=== PATIENT | male | born 1980 | race Caucasian/White ===

== ENCOUNTER 2025-04-28 08:28 | Outpatient (REF) | payer BC, SELFPAY ==
--- NOTE | 2025-04-28 08:34 | ECG_ITS ---
Test Reason : r/o qtc prolongation Blood Pressure : */* mmHG Vent. Rate : 73 BPM Atrial Rate : 73 BPM P-R Int : 154 ms QRS Dur : 88 ms QT Int : 388 ms P-R-T Axes : 37 62 30 degrees QTcB Int : 427 ms Normal sinus rhythm Normal ECG No previous ECGs available Referred By: Angelina Johnson Electronically Signed By: JOVANNY ORTEGA MD
[2025-04-28 08:57] LABS: MANUAL DIFF FLAG NO
--- OUTSIDE RECORDS SUMMARY | 2025-04-28 09:31 | XMS_ITS ---
Author Name [facility] Organization Unknown Results Test Name/Text Value Interpretation Date Range Source eGFRcr SerPlBld CKD-EPI 2020 95.0 mL/min/1.73m2 Normal 10/24/2024 - [facility] Prot SerPl-mCnc 7.2 g/dL Normal 10/24/2024 6.4 - 8.5 [facility] Creat SerPl-mCnc 0.99 mg/dL Normal 10/24/2024 0.7 - 1.3 C [facility] AST SerPl-cCnc 22.0 unit/L Normal 10/24/2024 5 - 40 [facility] ALT SerPl-cCnc 25.0 unit/L Normal 10/24/2024 7 - 52 CT [facility] Bilirub SerPl-mCnc 0.6 mg/dL Normal 10/24/2024 0.3 - 1 [facility] Potassium SerPl-sCnc 4.7 mmol/L Normal 10/24/2024 3.5 - 5.1 [facility] Glucose SerPl-mCnc 96.0 mg/dL Normal 10/24/2024 70 - 199 [facility] BUN/Creat SerPl 13.1 Normal 10/24/2024 12 - 20 [facility] CO2 SerPl-sCnc 31.0 mmol/L Normal 10/24/2024 24 - 32 CT [facility] Albumin SerPl-mCnc 4.5 g/dL Normal 10/24/2024 3.5 - 5 [facility] Chloride SerPl-sCnc 104.0 mmol/L Normal 10/24/2024 98 - 1 07 [facility] ALP SerPl-cCnc 50.0 unit/L Normal 10/24/2024 34 - 104 [facility] BUN SerPl-mCnc 13.0 mg/dL Normal 10/24/2024 9 - 20 [facility] Sodium SerPl-sCnc 139.0 mmol/L Normal 10/24/2024 135 - 14 5 [facility] Anion Gap SerPl-sCnc 4.0 Below low normal 10/24/2024 5 - 14 [facility] Calcium SerPl-mCnc 9.6 mg/dL Normal 10/24/2024 8.4 - 10.2 [facility] Monocytes # Bld Auto 0.53 K/mcL Normal 10/24/2024 0 - 0.8 [facility] Lymphocytes # Bld Auto 1.23 K/mcL Normal 10/24/2024 1 - 3.2 [facility] PMV Bld Auto 8.7 FL Normal 10/24/2024 7.4 - 11.4 [facility] Neutrophils # Bld Auto 5.67 K/mcL Normal 10/24/2024 1.8 - 7.8 [facility] Platelet # Bld Auto 292.0 K/mcL Normal 10/24/2024 150 - 4 50 [facility] Eosinophil/leuk NFr Bld Auto 1.6 % Normal 10/24/2024 0 - 6 [facility] MCV RBC Auto 88.4 FL Normal 10/24/2024 78 - 100 [facility] Monocytes/leuk NFr Bld Auto 7.0 % Normal 10/24/2024 2 - 12 [facility] Hgb Bld-mCnc 14.7 g/dL Normal 10/24/2024 13.5 - 18 [facility] MH Basophils # Bld Auto 0.04 K/mcL Normal 10/24/2024 0 - 0.2 [facility] Lymphocytes/leuk NFr Bld Auto 16.1 % Below low normal 10/24/2024 20 - 48 [facility] MCH RBC Qn Auto 29.9 pcg Normal 10/24/2024 25 - 33 [facility] Eosinophil # Bld Auto 0.12 K/mcL Normal 10/24/2024 0 - 0.5 [facility] Hct VFr Bld Auto 43.5 % Normal 10/24/2024 40 - 54 CT [facility] WBC # Bld Auto 7.6 K/mcL Normal 10/24/2024 4 - 10.5 [facility] MCHC RBC Auto-mCnc 33.8 g/dL Normal 10/24/2024 32 - 36 [facility] Basophils/leuk NFr Bld Auto 0.5 % Normal 10/24/2024 0 - 2 [facility] Neutrophils/leuk NFr Bld Auto 74.4 % Above high normal 10/24/2024 44 - 74 [facility] RDW RBC Auto-Rto 13.0 % Normal 10/24/2024 12.1 - 17.7 [facility] RBC # Bld Auto 4.92 M/mcL Normal 10/24/2024 4.7 - 6 CT_ [facility] Albumin SerPl-mCnc 4.7 g/dL Normal 10/20/2024 3.5 - 5 [facility] BUN SerPl-mCnc 16.0 mg/dL Normal 10/20/2024 9 - 20 [facility]_ [facility] eGFRcr SerPlBld CKD-EPI 2020 90.0 mL/min/1.73m2 Normal 10/20/2024 - [facility] Chloride SerPl-sCnc 101.0 mmol/L Normal 10/20/2024 98 - 1 07 [facility] Glucose SerPl-mCnc 101.0 mg/dL Normal 10/20/2024 70 - 199 [facility] BUN/Creat SerPl 15.4 Normal 10/20/2024 12 - 20 [facility]_ [facility] Sodium SerPl-sCnc 139.0 mmol/L Normal 10/20/2024 135 - 14 5 [facility] Prot SerPl-mCnc 7.5 g/dL Normal 10/20/2024 6.4 - 8.5 [facility] Creat SerPl-mCnc 1.04 mg/dL Normal 10/20/2024 0.7 - 1.3 C [facility] Calcium SerPl-mCnc 9.7 mg/dL Normal 10/20/2024 8.4 - 10.2 [facility] Anion Gap SerPl-sCnc 9.0 Normal 10/20/2024 5 - 14 [facility] ALT SerPl-cCnc 25.0 unit/L Normal 10/20/2024 7 - 52 [facility] ALP SerPl-cCnc 65.0 unit/L Normal 10/20/2024 34 - 104 [facility] AST SerPl-cCnc 21.0 unit/L Normal 10/20/2024 5 - 40 [facility] Bilirub SerPl-mCnc 0.5 mg/dL Normal 10/20/2024 0.3 - 1 [facility] Potassium SerPl-sCnc 4.1 mmol/L Normal 10/20/2024 3.5 - 5.1 [facility] CO2 SerPl-sCnc 29.0 mmol/L Normal 10/20/2024 24 - 32 [facility] Eosinophil # Bld Auto 0.11 K/mcL Normal 10/20/2024 0 - 0.5 [facility] Lymphocytes # Bld Auto 1.04 K/mcL Normal 10/20/2024 1 - 3.2 [facility] MCV RBC Auto 89.3 FL Normal 10/20/2024 78 - 100 [facility] Eosinophil/leuk NFr Bld Auto 1.6 % Normal 10/20/2024 0 - 6 [facility] MCH RBC Qn Auto 30.7 pcg Normal 10/20/2024 25 - 33 [facility] Neutrophils/leuk NFr Bld Auto 76.4 % Above high normal 10/20/2024 44 - 74 [facility] Hgb Bld-mCnc 14.9 g/dL Normal 10/20/2024 13.5 - 18 [facility] Basophils/leuk NFr Bld Auto 0.3 % Normal 10/20/2024 0 - 2 [facility] RBC # Bld Auto 4.85 M/mcL Normal 10/20/2024 4.7 - 6 [facility] Neutrophils # Bld Auto 5.16 K/mcL Normal 10/20/2024 1.8 - 7.8 [facility] WBC # Bld Auto 6.8 K/mcL Normal 10/20/2024 4 - 10.5 [facility] Basophils # Bld Auto <0.03 K/mcL Normal 10/20/2024 0 - 0.2 [facility] Platelet # Bld Auto 298.0 K/mcL Normal 10/20/2024 150 - 4 50 [facility] MCHC RBC Auto-mCnc 34.4 g/dL Normal 10/20/2024 32 - 36 [facility] Lymphocytes/leuk NFr Bld Auto 15.4 % Below low normal 10/20/2024 20 - 48 [facility] Monocytes/leuk NFr Bld Auto 5.9 % Normal 10/20/2024 2 - 12 [facility] RDW RBC Auto-Rto 12.8 % Normal 10/20/2024 12.1 - 17.7 [facility] PMV Bld Auto 9.0 FL Normal 10/20/2024 7.4 - 11.4 [facility] Monocytes # Bld Auto 0.4 K/mcL Normal 10/20/2024 0 - 0.8 [facility] Hct VFr Bld Auto 43.3 % Normal 10/20/2024 40 - 54 [facility] Nitrite Ur Ql Strip.auto NEGATIVE Normal 04/11/2024 - [facility] Hgb Ur Ql Strip.auto TRACE Abnormal 04/11/2024 - [facility] Leukocyte esterase Ur Ql Strip.auto NEGATIVE Normal 04/11/2024 - [facility] pH Ur Strip.auto 7.0 Normal 04/11/2024 4.5 - 8 CT [facility] Glucose Ur Ql Strip.auto NEGATIVE Normal 04/11/2024 - [facility] Clarity Ur Refract.auto CLEAR Normal 04/11/2024 [facility] Ketones Ur Ql Strip.auto NEGATIVE Normal 04/11/2024 - [facility] Prot Ur Ql Strip.auto NEGATIVE Normal 04/11/2024 - [facility] Sp Gr Ur Strip.auto 1.015 Normal 04/11/2024 1.005 - 1 .03 [facility] SPECIMEN SOURCE XXX URINE CLEAN CATCH Normal 04/11/2024 [facility] SQUAMOUS NO./AREA URNS LPF 1.0 /LPF Normal 04/11/2024 0 - 5 [facility] WBC number/area UrnS Auto 0.0 /HPF Normal 04/11/2024 0 - 5 [facility] RBC number/area UrnS Auto 1.0 /HPF Normal 04/11/2024 0 - 3 [facility] History of Medication Use Medication Directions Dispensed Refills Start Date End Date Stat amoxicillin-clavulan ate (AUGMENTIN) 875-125 mg per tablet Take 1 tablet by mouth 2 (two) times a day for 7 days. 10/27/2024 active iopamidoL (ISOVUE-370) 370 mg iodine /mL (76 %) injection 100 mL 100 mL, intravenous, Once in imaging, Starting on Sun10/20/24 at 1234, For 1 dose 10/20/2024 10/20/2024 completed sodium chloride 0.9 % flush 10 mL 10 mL, intravenous, Once, On Sun10/20/24 at 1235, For 1 dose 10/20/2024 10/20/2024 completed sodium chloride 0.9 % intravenous solution 50 mL 50 mL, intravenous, Once in imaging, Starting on Sun10/20/24 at 1234, For 1 dose 10/20/2024 10/20/2024 completed citalopram (CeleXA) 40 mg tablet Take 1 tablet (40 mg total) by mouth 1 (one) time each day. 06/29/2024 active citalopram (CeleXA) 40 mg tablet Take 1 tablet (40 mg total) by mouth 1 (one) time each day. 06/29/2024 active nortriptyline (PAMELOR) 25 mg capsule Take 1 capsule (25 mg total) by mouth 1 (one) time each day. 06/29/2024 active nortriptyline (PAMELOR) 25 mg capsule Take 1 capsule (25 mg total) by mouth 1 (one) time each day. 06/29/2024 active dexamethasone (DECADRON) 6 MG tablet Take 1 tablet (6 mg total) by mouth every 6 (six) hours for 3 days. 04/11/2024 04/15/2024 active nortriptyline (PAMELOR) 10 MG capsule Take 1 capsule (10 mg total) by mouth every night at bedtime. active Problems Problem Status Onset Date Problem Type Date of Resoluti on Source Intussusception intestine active 2024-10-[address] [facility] Encounters Encounter Type Encounter Reason Primary Diagnosis Location Date Ambulatory Intussusception (CMS/HCC V24, CMS/HCC V28) Intussusception (CMS/HCC V24, CMS/HCC V28) [facility] 11/18/2024 Ambulatory Follow-up Follow-up [facility] 11/10/2024 Ambulatory Follow-up Follow-up [facility] 10/27/2024 Ambulatory [facility] 10/27/2024 Emergency abd pain Intussusception [facility] 10/24/2024 Ambulatory [facility] 10/21/2024 Ambulatory [facility] 10/21/2024 Emergency bloody stool Intussusception [facility] 10/20/2024 Emergency Radiculopathy, lumba r region Radiculopathy, lumbar region [facility] 04/11/2024 Care Team Organization Name Specialty Phone Email Start Date End [facility] te [facility] KARRIE QUILES Primary Care 02/27/2025 [facility] 11/06/2024 [facility] 10/29/2024 [facility] 10/29/2024 [facility] 10/28/2024 [facility] 10/20/2024 [facility] 10/20/2024 [facility] 04/11/2024 03/03/2025 [facility] 04/11/2024 [facility] 03/06/2024 [facility] 08/28/2022
--- OUTSIDE RECORDS SUMMARY | 2025-04-28 09:31 | XMS_ITS | Clinical Summary ---
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 06/29/2024 Active nortriptyline (PAMELOR) 25 mg capsule Take 1 capsule (25 mg total) by mouth 1 (one) time each day. 06/29/2024 Active Active Problems Problem Noted Date Diagnosed Date Intussusception intestine ([facility] V24, [facility] V28) 10/20/2024 Medical History Medical History Date Comments Anxiety Depression Social History Tobacco Use Types Packs/Day Years Used Date Smoking Tobacco: Never Smokeless Tobacco: Never Tobacco Cessation:Counseling Given: Not Answered Alcohol Use Standard Drinks/Week Comments Yes 0 (1 standard drink = 0.6 oz pur e alcohol) Sex and Gender Information Value Date Recorded Sex Assigned at Male 10/20/2024 10:45 AM EST Legal Sex Male 4:10 PM EST Gender Identity Male 10/20/2024 10:45 AM EST Sexual Orientation Straight 10/20/2024 10 :45 AM EST Obstetrics History Last Filed Vital Signs Vital Sign Reading Time Taken Comments Blood Pressure 123/65 11/10/2024 10:47 AM EDT Pulse 90 11/10/2024 10:47 AM EDT Temperature 36.6 C (97.9 F) 10/24/2024 1:06 PM EST Respiratory Rate 18 10/24/2024 4:43 PM EST Oxygen Saturation 99% 10/24/2024 4:43 PM EST Inhaled Oxygen Concentration - - Weight 83.9 kg (185 lb) 11/10/2024 10:47 AM EDT Height 170.2 cm (5' 7 ) 11/10/2024 10:47 AM EDT Body Mass Index 28.98 11/10/2024 10:47 AM EDT Plan of Treatment Health Maintenance Due Date Last Done Comments DTaP,Tdap,and Td Vaccines (1 - Tdap) 1997 Hepatitis B Vaccines (1 of 3 - 19+ 3-dose series) 1997 Cholesterol Screening (Lipid Panel) 06/04/2024 Colorectal Cancer Screening: Colonoscopy 06/04/2024 HIV Screening 06/04/2024 Hepatitis C Screening 06/04/2024 Social Influencers of Health Screening 06/04/2024 Depression Screening 08/20/2024 COVID-19 Vaccine ( - 2023-2 5 season) 2025 Influenza Vaccine (#1) 2025 HIB Vaccines Aged Out No longer eligi ble based on patient's age to complete this topic HPV Vaccines Aged Out No longer eligi ble based on patient's age to complete this topic Hepatitis A Vaccines Aged Out No long er eligible based on patient's age to complete this topic IPV Vaccines Aged Out No longer eligi ble based on patient's age to complete this topic MMR Vaccines Aged Out No longer eligi ble based on patient's age to complete this topic Meningococcal ACWY Vaccine Aged Out N o longer eligible based on patient's age to complete this topic Meningococcal B Vaccine Aged Out No l onger eligible based on patient's age to complete this topic Pneumococcal Vaccine: Pediat rics (0 to 5 Years) and At-Risk Patients (6 to 49 Years) Aged Out No longer eligible b ased on patient's age to complete this topic RSV Immunization Patients Un israel 20 months Aged Out No longer eligible b ased on patient's age to complete this topic Varicella Vaccines Aged Out No longer eligible based on patient's age to complete this topic Insurance [facility] ([facility]) Care Teams Airplane Cover Maker Relationship Specialty Start Date End Date Micaela Casper MD [address] [place] [phone] PCP - General Internal Medicine 10/20/24
--- OUTSIDE RECORDS SUMMARY | 2025-04-28 09:31 | XMS_ITS | Clinical Summary ---
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 0 Active nortriptyline (PAMELOR) 10 MG capsule Take 1 capsule (10 mg total) by mouth every night at bedtime. 0 Active Active Problems No known active problems Social History Tobacco Use Types Packs/Day Years Used Date Smoking Tobacco: Never Assessed Sex and Gender Information Value Date Recorded Sex Assigned at Male 04/11/2024 11:02 AM EDT Gender Identity Not on file Sexual Orientation Not on file Job Start Date Occupation Industry Not on file Not on file Not on file Last Filed Vital Signs Vital Sign Reading Time Taken Comments Blood Pressure 122/85 04/11/2024 10:18 AM EDT Pulse 88 04/11/2024 10:18 AM EDT Temperature 37 C (98.6 F) 04/11/2024 10:18 AM EDT Respiratory Rate 16 04/11/2024 10:18 AM EDT Oxygen Saturation 100% 04/11/2024 10:18 AM EDT Inhaled Oxygen Concentration - - Weight 83.9 kg (185 lb) 04/11/2024 10:18 AM EDT Height 170.2 cm (5' 7 ) 04/11/2024 10:18 AM EDT Body Mass Index 28.98 04/11/2024 10:18 AM EDT Plan of Treatment Not on file
--- OUTSIDE RECORDS SUMMARY | 2025-04-28 09:31 | XMS_ITS | Patient Health Record ---
Author Organization [facility] Address [address] [place] [address] Care Team Providers Care Counselor Manager Name Role Phone NICOLE WILLETT Primary Care Provider Bibi Wilson Unavailable [phone] Kelsey Quiroga Unavailable [phone] Allergies Allergen (clinical drug ingredient) Drug/Non Drug Allergy documented on EMR Reaction Allergy Type Onset Date Status penicillamine Penicillamine Unknown Drug Allergy Active Results Component Value Reference Range Notes CT ABDOMEN PELVIS W CONTRAST Reviewed date:11/26/2024 01:12:45 PM Interpretation: Performing Lab: Notes/Report: Note See Note [facility], a member of [facility] Patient Name: ARMAAN HERNANDEZ Date of : 1980 Reason for Exam: Abdominal pain, acute, no prior medical history Exam Date: 11/18/2024 [id number] EST Report Status: Final Ordering Provider: MAX MAXWELL PCP: NICOLE WILLETT EXAMINATION: CT ABDOMEN AND PELVI S WITH CONTRAST CLINICAL INFORMATION: Abdominal pain, acut e, no prior medical history COMPARISON: CT abdomen pelvis 10/24/2024 TECHNIQUE: Multidetector volume tric imaging was performed of the abdomen and pelvis following the uneventful administration of intravenous contrast. Sagittal and coronal reformatted images were obtained on the technologist's workstation. MEDICATIONS: 100 mL IOPAMIDOL 370 MG IODINE/ML (76 %) INTRAVENOUS SOLUTION Route: intravenous RADIATION DOSE INDICATORS: CT Dose Summary Up-to-date CT equipm ent and radiation dose reduction techniques were employed. CTDIvol: 14.5 mGy. DLP: 695 mGy-cm. These indicators are not patient dose, but values generated from the CT scanner acquisition factors. This CT examination was performed using dose optimization techniques as appropriate, variously including the following: *Automated exposure control *Adjustment of mA an d/or kV according to patient size (this includes techniques or standardized protocols for targeted exams where dose is matched to indication/reason for exam; i.e. extremities or head) *Use of iterative reconstruction technique FINDINGS: LUNG BASES: Unremarkable. LIVER AND BILIARY TR EE: Unchanged inferior right hepatic lobe subcentimeter hypoattenuating lesion, too small to characterize but statistically likely to represent a simple cyst. Liver otherwise unremarkable. GALLBLADDER: Unremarkable. PANCREAS: Unremarkable. SPLEEN: Unremarkable. ADRENAL GLANDS: Unremarkable. KIDNEYS AND URETERS: Interpolar right renal simple cyst for which no dedicated follow-up imaging is required. No hydronephrosis or urinary tract calculi identified. GASTROINTESTINAL TRA CT: No bowel dilation or evidence of obstruction. Interval resolution of previously seen left upper abdominal enteroenteric intussusception. Mild colonic diverticulosis without evidence of acute diverticulitis. Normal appendix. VASCULAR: Unremarkable LYMPH NODES: No lymphadenopathy. PERITONEUM: No ascites. EXTRAPERITONEAL SOFT TISSUES: Unremarkable. BLADDER: Mild circumferential urinary wall thickening of a partially decompressed urinary bladder. PELVIC VISCERA: Unremarkable. OSSEOUS STRUCTURES: Minimal multilevel degenerative lumbar spondylosis. IMPRESSION: 1. Mild wall thicken ing of a partially decompressed urinary bladder, nonspecific though can be seen in setting of cystitis. Correlate with urinalysis. 2. Otherwise, no acu te abnormality of the abdomen or pelvis. Interval resolution of previous left upper abdominal enteroenteric intussusception. Report reviewed and signed by : Dr. Alexandr Guadalupe on 11/24/2024 10:41 AM. Workstation Name - [id number] -------- FINAL REPOR T -------- Dictated By: Alexandr Guadalupe Dictated Date: 11/24 10:34 ET Assigned Physician: Alexandr Guadalupe Reviewed and Electronically Signed By: Alexandr Guadalupe Signed Date: 10:41 ET Workstation ID: [id number] Transcribed By: Self Edit Transcribed Date: 11/24/2024 10:34 ET 25-Hydroxyvitamin D LCNV D2+ [id number] Reviewed date:08/11/2024 07:56:46 AM Interpretation: Performing Lab:[facility], [address] [facility], Phone - [phone], Director - Reinaldo Notes/Report: 25-Hydroxy, Vitamin D 37 Reference Range: All Ages: Target levels 30 - 100 25-Hydroxy, Vitamin D-2 1.0 This test was developed and its performance characteristics determined by [facility]. It has not been cleared or approved by the Food and Drug Administration. 25-Hydroxy, Vitamin D-3 36 This test was developed and its performance characteristics determined by [facility]. It has not been cleared or approved by the Food and Drug Administration. CBC With Differential/Platel et-[id number] Reviewed date:08/11/2024 07:56:32 AM Interpretation: Performing Lab:[facility], [address] [facility], [place], Phone - [phone], Director - Reinaldo Notes/Report: WBC 4.6 3.4-10.8 x10E3/uL RBC 4.98 4.14-5.80 x10E6/uL Hemoglobin 15.0 13.0-17.7 g/dL Hematocrit 45.4 37.5-51.0 % MCV 91 79-97 fL MCH 30.1 26.6-33.0 pg MCHC 33.0 31.5-35.7 g/dL RDW 12.8 11.6-15.4 % Platelets 334 150-450 x10E3/uL Neutrophils 65 Not Estab. % Lymphs 23 Not Estab. % Monocytes 8 Not Estab. % Eos 3 Not Estab. % Basos 1 Not Estab. % Neutrophils (Absolute) 3.0 1.4-7.0 x10E3/uL Lymphs (Absolute) 1.1 0.7-3.1 x10E3/uL Monocytes(Absolute) 0.4 0.1-0.9 x10E3/uL Eos (Absolute) 0.1 0.0-0.4 x10E3/uL Baso (Absolute) 0.0 0.0-0.2 x10E3/uL Immature Granulocytes 0 Not Estab. % Immature Grans (Abs) 0.0 0.0-0.1 x10E3/uL Homocyst(e)ine-655202 Reviewed date:08/11/2024 07:56:49 AM Interpretation: Performing Lab:[facility], [address], [place], Phone - [phone], Director - [facility] Notes/Report: Homocyst(e)ine 10.0 0.0-14.5 umol/L Vitamin B12 and Folate-03670 0 Reviewed date:08/11/2024 07:56:52 AM Interpretation: Performing Lab:[address], Phone - [phone], Director - [facility] Notes/Report: Vitamin B12 895 890-5594 pg/mL Folate (Folic Acid), Serum >20.0 >3.0 ng/mL A serum folate concentration of less than 3.1 ng/mL is considered to represent clinical deficiency. TSH-[id number] Reviewed date:08/11/2024 07:56:54 AM Interpretation: Performing Lab:[facility], [address] [place] [address], Phone - [phone], Director - [facility] Notes/Report: TSH 0.471 0.450-4.500 uIU/mL Lipid Panel-[id number] Reviewed date:08/11/2024 07:56:57 AM Interpretation: Performing Lab:[facility], [address] [place] [address], Phone - [phone], Director - [facility] Notes/Report: Cholesterol, Total 222 100-199 mg/dL Triglycerides 117 0-149 mg/dL HDL Cholesterol 62 >39 mg/dL VLDL Cholesterol Wade 21 5-40 mg/dL LDL Chol Calc (NIH) 139 0-99 mg/dL Comp. Metabolic Panel (14)-3 04101 Reviewed date:08/11/2024 07:57:02 AM Interpretation: Performing Lab:[facility], [address] [place] [address], Phone - [phone], Director - [facility] Notes/Report: Glucose 90 70-99 mg/dL BUN 11 6-24 mg/dL Creatinine 1.08 0.76-1.27 mg/dL eGFR 86 >59 mL/min/1.73 BUN/Creatinine Ratio 10 9-20 Sodium 141 134-144 mmol/L Potassium 4.8 3.5-5.2 mmol/L Chloride 102 96-106 mmol/L Carbon Dioxide, Total 23 20-29 mmol/L Calcium 9.5 8.7-10.2 mg/dL Protein, Total 6.8 6.0-8.5 g/dL Albumin 4.6 4.1-5.1 g/dL Globulin, Total 2.2 1.5-4.5 g/dL Bilirubin, Total 0.3 0.0-1.2 mg/dL Alkaline Phosphatase 61 44-121 IU/L AST (SGOT) 29 0-40 IU/L ALT (SGPT) 33 0-44 IU/L Reason For Referral Reason screening C- Scope Diagnosis 1 Encounter for screen ing for malignant neoplasm of colon (Z12.11) Referral Organization [facility] Referring Provider First Name RIVERA Referring Provider Last Name [facility] Referring Provider Speciality Internal edicine Referred Provider Specialty Gastroentero logy General Notes Referral faxed to Robby Madrigal. Please contact patient to schedule. Clinical Notes Antoinette Su 024 04:12:51 PM > Referral Priority Routine Reason snoring Diagnosis 1 Snoring (R06.83) Referral Organization [facility] Referring Provider First Name NICOLE Referring Provider Last Name [facility] Referring Provider Speciality Internal edicine Referred Provider Specialty Sleep Medici ne General Notes [facility] Sleep Study Form faxed, Antoinette Su 09/01/2024 03:17:55 PM > Referral Priority Routine Reason Evaluation and manag ement Diagnosis 1 Abdominal pain (R10. 9) Diagnosis 2 Intussusception (K56 .1) Referral Organization [facility] Referring Provider First Name RIVERA Referring Provider Last Name [facility] Referring Provider Speciality Internal edicine Referred Provider Specialty Gastroentero logy General Notes Referral sent to [facility] ([address] [place] [phone] ) - Office will call patient for scheduling.Ino Latraya 12/16/2024 08:35:08 AM > Referral Priority Routine Medications Medication SIG (Take, Route, Frequency, Duration) Notes Start Date End Date Status Nortriptyline HCl 25 MG TAKE 1 CAPSULE B Y MOUTH EVERY DAY; Duration: 90 Active clonazePAM 0.5 MG 1 tablet at bedtime Orally Once a day; Duration: 12 days 08/18/2024 Active Citalopram Hydrobromide 40 MG TAKE 1 TABLET BY MOUTH EVERY DAY; Duration: 90 Active Immunizations Vaccine Route Administration [facility]/29/2021 Administered Social History Tobacco Use: Social History Observation Description Date Details (start date - stop date) Former Smoker NA - NA Tobacco Use/Smoking Question Answer Notes Are you a former smoker How long has it been since you last smoked? 1-5 years Alcohol Screen (Audit-C) Question Answer Notes Did you have a drink contain ing alcohol in the past year? Yes How often did you have a dri nk containing alcohol in the past year? 4 or more times a week (4 points) How many drinks did you have on a typical day when you were drinking in the past year? 1 or 2 drinks (0 point) Points 4 Interpretation Positive Problems Problem Type SNOMED Code ICD Code Onset Dates Problem Status W/U Status Risk Notes Problem Obesity due to excess calories (671589710) Other obesity due to excess calories (E66.09) Active confirmed Problem Mixed hyperlipidemia (340257764) Mixed hyperlipidemia (E78.2) Active confirmed Problem Generalized anxiety disorder (24248343) Generalized anxiety disorder (F41.1) Active confirmed Problem Anxiety disorder (937957309) Anxiety disorder, unspecified (F41.9) Active confirmed Problem Arthralgia of the upper arm (123557958) Pain in right elbow (M25.521) Active confirmed Problem Adult health examination (796494705) Encounter for general adult medical examination without abnormal findings (Z00.00) Active confirmed Problem Amnesia (38103650) Complaints of memory disturbance (R41.3) Active confirmed Problem Body mass index 30.00 to 34.99 (359794185862742) Body mass index [BMI] 31.0-31.9, adult (Z68.31) Active confirmed Vital Signs Heart Rate 99 /min 02/02/2025 Temperature 97.1 degrees Fahrenheit 02/02/2025 Oximetry 99 % 02/02/2025 Blood pressure diastolic 62 mm Hg 02/02/2025 Height 67.13 in 02/02/2025 Blood pressure systolic 100 mm Hg 02/02/2025 Weight 181.4 lbs 02/02/2025 BMI 28.3 kg/m2 02/02/2025 Encounters Encounter Location Date Provider Diagnosis [facility] [address] [facility] [address] [place] [address] 07/28/2024 NICOLE WILLETT Encounter for genera l adult medical examination without abnormal findings Z00.00 ; Generalized anxiety disorder F41.1 ; Mixed hyperlipidemia E78.2 ; Complaints of memory disturbance R41.3 ; Other obesity due to excess calories E66.09 ; Dietary counseling and surveillance Z71.3 and Snoring R06.83 [facility] [address] [place] [address] 10/30/2024 [place] Intussusception K56. 1 ; Anxiety disorder, unspecified F41.9 and Lower abdominal pain, unspecified R10.30 [facility] [address] [place] [address] 02/02/2025 Kelsey Quiroga Generalized anxiety disorder F41.1 [facility] [address] [place] [address] 07/28/2024 [facility] [address] [place] [address] 08/08/2024 [facility] Generalized anxiety disorder F41.1 [facility] [address] [place] [address] 10/03/2024 [facility] [address] [place] [address] 01/30/[address] [place] [address] 04/16/2025 [facility] [address] [place] [address] 07/29/2024 [facility] [address] [place] [address] 08/22/2024 [facility] [address] [place] [address] 09/09/2024 [facility] [address] [place] [address] 10/22/2024 [facility] [address] [facility] [address] [place] [address] 12/15/2024 NICOLE WILLETT Assessments Encounter Date Diagnosis (ICD Code) Assessment Notes Treatment Notes Treatment Clinical Notes Section Notes 07/28/2024 Generalized anxiety disorder (ICD-10 - F41.1) Tommie is 43 years old gentleman with generalized anxiety disorder/depressio n, insomnia, mixed hyperlipidemia complains of memory lapses. Plan is as follows Generalized anxiety disorder/depressio n. Continue on citalopram 40 mg daily at this point and continue nortriptyline 25 mg daily at bedtime. He is following up with counselor every week. He is not suicidal or homicidal. Mixed hyperlipidemia. Dietary restrictions, weight loss and blood work ordered Snoring. He scored 10 on ESS. Mallampati class IV and referral to sleep medicine for sleep study Memory lapses. Differential diagnosis as generalized anxiety disorder/depressio n, attention deficit disorder, sleep apnea. We did 3 words tests and he remembered 2 words out of 3. We will do sleep study to rule out sleep apnea at the same time we ordered blood work for reversible causes of memory loss along with MRI of the brain for further evaluation. If everything comes back negative we will send him to neurologist and may consider trying stimulants. Meanwhile he was advised to lose weight, regular exercise, appropriate hydration and do crossword puzzles and number games for brain stimulation. obesity. Complications of obesity discussed. Advised low calorie, low carbohydrate diet. Screening blood work ordered along with screening colonoscopy. 07/28/2024 Encounter for general adult medical examination without abnormal findings (ICD-10 - Z00.00) Tommie is 43 years old gentleman with generalized anxiety disorder/depressio n, insomnia, mixed hyperlipidemia complains of memory lapses. Plan is as follows Generalized anxiety disorder/depressio n. Continue on citalopram 40 mg daily at this point and continue nortriptyline 25 mg daily at bedtime. He is following up with counselor every week. He is not suicidal or homicidal. Mixed hyperlipidemia. Dietary restrictions, weight loss and blood work ordered Snoring. He scored 10 on ESS. Mallampati class IV and referral to sleep medicine for sleep study Memory lapses. Differential diagnosis as generalized anxiety disorder/depressio n, attention deficit disorder, sleep apnea. We did 3 words tests and he remembered 2 words out of 3. We will do sleep study to rule out sleep apnea at the same time we ordered blood work for reversible causes of memory loss along with MRI of the brain for further evaluation. If everything comes back negative we will send him to neurologist and may consider trying stimulants. Meanwhile he was advised to lose weight, regular exercise, appropriate hydration and do crossword puzzles and number games for brain stimulation. obesity. Complications of obesity discussed. Advised low calorie, low carbohydrate diet. Screening blood work ordered along with screening colonoscopy. 08/08/2024 Generalized anxiety disorder (ICD-10 - F41.1) 10/30/2024 Anxiety disorder, unspecified (ICD-10 - F41.9) 44-year-old gentleman with history of anxiety disorder recently went to [facility] for left-sided abdominal pain nausea vomiting found to have small bowel intussusception is here today for a follow-up visit. Left-sided abdominal pain with recent finding of intussusception. Patient is currently on Augmentin 875 mg twice a day per his surgeon. Abdominal exam does not reveal any evidence of acute abdomen. He is slightly tender on the left side of the abdomen but without any rebound. He is tolerating soft diet. He reports a regular bowel movement yesterday however this morning he has 3 bouts of nonbloody diarrhea. Which could be related to antibiotic therapy. He is afebrile and lab work reviewed from the hospital showed no leukocytosis I have discussed with patient that if there is any increasing pain or nausea or vomiting he needs to immediately return back to [facility] emergency room. He also has to call his surgeon. Patient reported he already has an appointment with the surgeon in 2 weeks as they will be repeating imaging and if there was still a persistent intussusception they may intervene for now he was told by surgeon to continue with conservative management. patient voices understanding of returning to the emergency room if any increasing abdominal pain. We advised that he continues to hydrate himself and continue with Tylenol or ibuprofen for pain and to continue with a soft diet. anxiety and depression currently stable 10/30/2024 Intussusception (ICD-10 - K56.1) 44-year-old gentleman with history of anxiety disorder recently went to [facility] for left-sided abdominal pain nausea vomiting found to have small bowel intussusception is here today for a follow-up visit. Left-sided abdominal pain with recent finding of intussusception. Patient is currently on Augmentin 875 mg twice a day per his surgeon. Abdominal exam does not reveal any evidence of acute abdomen. He is slightly tender on the left side of the abdomen but without any rebound. He is tolerating soft diet. He reports a regular bowel movement yesterday however this morning he has 3 bouts of nonbloody diarrhea. Which could be related to antibiotic therapy. He is afebrile and lab work reviewed from the hospital showed no leukocytosis I have discussed with patient that if there is any increasing pain or nausea or vomiting he needs to immediately return back to [facility] emergency room. He also has to call his surgeon. Patient reported he already has an appointment with the surgeon in 2 weeks as they will be repeating imaging and if there was still a persistent intussusception they may intervene for now he was told by surgeon to continue with conservative management. patient voices understanding of returning to the emergency room if any increasing abdominal pain. We advised that he continues to hydrate himself and continue with Tylenol or ibuprofen for pain and to continue with a soft diet. anxiety and depression currently stable 02/02/2025 Generalized anxiety disorder (ICD-10 - F41.1) Tommie is 44 years old gentleman with generalized anxiety disorder, mixed hyperlipidemia is here to discuss [facility] request for anxiety. Plan as follows: CRISPIN: he admits to multiple episodes last month which required him to be off from work. He has an appt coming up next month for further evaluation and medication rx. He does see a counselor once a week.He denies SI. We will excuse patient for 3 months to be off work during his epsiodes and patient was informed to further discuss the application with the psychiatrist after eval. General concerns have been discussed I have rendered the services for this patient under direct supervision of Dr. Willett, who did not see the patient but was available upon request 07/28/2024 Mixed hyperlipidemia (ICD-10 - E78.2) Tommie is 43 years old gentleman with generalized anxiety disorder/depressio n, insomnia, mixed hyperlipidemia complains of memory lapses. Plan is as follows Generalized anxiety disorder/depressio n. Continue on citalopram 40 mg daily at this point and continue nortriptyline 25 mg daily at bedtime. He is following up with counselor every week. He is not suicidal or homicidal. Mixed hyperlipidemia. Dietary restrictions, weight loss and blood work ordered Snoring. He scored 10 on ESS. Mallampati class IV and referral to sleep medicine for sleep study Memory lapses. Differential diagnosis as generalized anxiety disorder/depressio n, attention deficit disorder, sleep apnea. We did 3 words tests and he remembered 2 words out of 3. We will do sleep study to rule out sleep apnea at the same time we ordered blood work for reversible causes of memory loss along with MRI of the brain for further evaluation. If everything comes back negative we will send him to neurologist and may consider trying stimulants. Meanwhile he was advised to lose weight, regular exercise, appropriate hydration and do crossword puzzles and number games for brain stimulation. obesity. Complications of obesity discussed. Advised low calorie, low carbohydrate diet. Screening blood work ordered along with screening colonoscopy. 10/30/2024 Lower abdominal pain, unspecified (ICD-10 - R10.30) 44-year-old gentleman with history of anxiety disorder recently went to [facility] for left-sided abdominal pain nausea vomiting found to have small bowel intussusception is here today for a follow-up visit. Left-sided abdominal pain with recent finding of intussusception. Patient is currently on Augmentin 875 mg twice a day per his surgeon. Abdominal exam does not reveal any evidence of acute abdomen. He is slightly tender on the left side of the abdomen but without any rebound. He is tolerating soft diet. He reports a regular bowel movement yesterday however this morning he has 3 bouts of nonbloody diarrhea. Which could be related to antibiotic therapy. He is afebrile and lab work reviewed from the hospital showed no leukocytosis I have discussed with patient that if there is any increasing pain or nausea or vomiting he needs to immediately return back to [facility] emergency room. He also has to call his surgeon. Patient reported he already has an appointment with the surgeon in 2 weeks as they will be repeating imaging and if there was still a persistent intussusception they may intervene for now he was told by surgeon to continue with conservative management. patient voices understanding of returning to the emergency room if any increasing abdominal pain. We advised that he continues to hydrate himself and continue with Tylenol or ibuprofen for pain and to continue with a soft diet. anxiety and depression currently stable 07/28/2024 Complaints of memory disturbance (ICD-10 - R41.3) Tommie is 43 years old gentleman with generalized anxiety disorder/depressio n, insomnia, mixed hyperlipidemia complains of memory lapses. Plan is as follows Generalized anxiety disorder/depressio n. Continue on citalopram 40 mg daily at this point and continue nortriptyline 25 mg daily at bedtime. He is following up with counselor every week. He is not suicidal or homicidal. Mixed hyperlipidemia. Dietary restrictions, weight loss and blood work ordered Snoring. He scored 10 on ESS. Mallampati class IV and referral to sleep medicine for sleep study Memory lapses. Differential diagnosis as generalized anxiety disorder/depressio n, attention deficit disorder, sleep apnea. We did 3 words tests and he remembered 2 words out of 3. We will do sleep study to rule out sleep apnea at the same time we ordered blood work for reversible causes of memory loss along with MRI of the brain for further evaluation. If everything comes back negative we will send him to neurologist and may consider trying stimulants. Meanwhile he was advised to lose weight, regular exercise, appropriate hydration and do crossword puzzles and number games for brain stimulation. obesity. Complications of obesity discussed. Advised low calorie, low carbohydrate diet. Screening blood work ordered along with screening colonoscopy. 07/28/2024 Other obesity due to excess calories (ICD-10 - E66.09) Tommie is 43 years old gentleman with generalized anxiety disorder/depressio n, insomnia, mixed hyperlipidemia complains of memory lapses. Plan is as follows Generalized anxiety disorder/depressio n. Continue on citalopram 40 mg daily at this point and continue nortriptyline 25 mg daily at bedtime. He is following up with counselor every week. He is not suicidal or homicidal. Mixed hyperlipidemia. Dietary restrictions, weight loss and blood work ordered Snoring. He scored 10 on ESS. Mallampati class IV and referral to sleep medicine for sleep study Memory lapses. Differential diagnosis as generalized anxiety disorder/depressio n, attention deficit disorder, sleep apnea. We did 3 words tests and he remembered 2 words out of 3. We will do sleep study to rule out sleep apnea at the same time we ordered blood work for reversible causes of memory loss along with MRI of the brain for further evaluation. If everything comes back negative we will send him to neurologist and may consider trying stimulants. Meanwhile he was advised to lose weight, regular exercise, appropriate hydration and do crossword puzzles and number games for brain stimulation. obesity. Complications of obesity discussed. Advised low calorie, low carbohydrate diet. Screening blood work ordered along with screening colonoscopy. 07/28/2024 Dietary counseling and surveillance (ICD-10 - Z71.3) Tommie is 43 years old gentleman with generalized anxiety disorder/depressio n, insomnia, mixed hyperlipidemia complains of memory lapses. Plan is as follows Generalized anxiety disorder/depressio n. Continue on citalopram 40 mg daily at this point and continue nortriptyline 25 mg daily at bedtime. He is following up with counselor every week. He is not suicidal or homicidal. Mixed hyperlipidemia. Dietary restrictions, weight loss and blood work ordered Snoring. He scored 10 on ESS. Mallampati class IV and referral to sleep medicine for sleep study Memory lapses. Differential diagnosis as generalized anxiety disorder/depressio n, attention deficit disorder, sleep apnea. We did 3 words tests and he remembered 2 words out of 3. We will do sleep study to rule out sleep apnea at the same time we ordered blood work for reversible causes of memory loss along with MRI of the brain for further evaluation. If everything comes back negative we will send him to neurologist and may consider trying stimulants. Meanwhile he was advised to lose weight, regular exercise, appropriate hydration and do crossword puzzles and number games for brain stimulation. obesity. Complications of obesity discussed. Advised low calorie, low carbohydrate diet. Screening blood work ordered along with screening colonoscopy. 07/28/2024 Snoring (ICD-10 - R06.83) Tommie is 43 years old gentleman with generalized anxiety disorder/depressio n, insomnia, mixed hyperlipidemia complains of memory lapses. Plan is as follows Generalized anxiety disorder/depressio n. Continue on citalopram 40 mg daily at this point and continue nortriptyline 25 mg daily at bedtime. He is following up with counselor every week. He is not suicidal or homicidal. Mixed hyperlipidemia. Dietary restrictions, weight loss and blood work ordered Snoring. He scored 10 on ESS. Mallampati class IV and referral to sleep medicine for sleep study Memory lapses. Differential diagnosis as generalized anxiety disorder/depressio n, attention deficit disorder, sleep apnea. We did 3 words tests and he remembered 2 words out of 3. We will do sleep study to rule out sleep apnea at the same time we ordered blood work for reversible causes of memory loss along with MRI of the brain for further evaluation. If everything comes back negative we will send him to neurologist and may consider trying stimulants. Meanwhile he was advised to lose weight, regular exercise, appropriate hydration and do crossword puzzles and number games for brain stimulation. obesity. Complications of obesity discussed. Advised low calorie, low carbohydrate diet. Screening blood work ordered along with screening colonoscopy. Plan Of Treatment Pending Test Test Name Order Date MRI : Brain without Contrast 07/28/2024 COMPREHENSIVE METABOLIC PANEL 01/28/2019 LIPID PANEL 01/28/2019 Future Test Test Name Order Date CBC, No Differential/Platelet-[id number] 04/2024 Insurance Providers Payer Name Payer Address Payer Phone Subscriber Number Group Number Insured Name Patient Relationship to Insured Coverage Start Date Coverage End Date Pricilla Payton [address] [place] [id number] [id number] Armaan Carranza Self - patient is the insured Medical (General) History Medical History History ICD Code Anxiety disorder sees Michael Chaparro II for therapy Surgical History Surgery Date(Month/Year) shoulder surgery
[2025-04-28 10:02] LABS: Hematocrit 43.3 % (42.0-52.0); Hemoglobin 15.2 g/dl (14.0-18.0); Imm Gran Abs Auto 0.02 X10*3/uL (0.00-0.03); Imm Gran Pct Auto 0.4 % (0.0-0.4); Lymphocytes Absolute Auto 0.8 X10*3/uL (1.2-4.9); Mean Corpuscular HGB Conc 35.1 g/dl (31.0-36.0); Mean Corpuscular Hemoglobin 30.5 pg (27.0-33.0); Mean Corpuscular Volume 86.9 fL (80.0-98.0); NRBC Abs Auto 0.000 X10*3/uL (0.0-0.012); NRBC Pct Auto 0.0 /100WBC (0.0-0.2); Platelet Count 238 X10*3/uL (160-400); Red Blood Count 4.98 X10*6/uL (4.60-5.80); White Blood Count 5.0 X10*3/uL (4.8-10.8)
[2025-04-28 10:07] LABS: Hemoglobin A1C 76.8034 umol/L; Total Hemoglobin (HGBA1C) 2246.9665 umol/L
[2025-04-28 10:39] LABS: Alanine Aminotransferase 45 U/L (0-40); Albumin Level 4.8 g/dL (3.5-5.0); Alkaline Phosphatase 53 U/L (39-117); Anion Gap 14 (12-20); Aspartate Amino Transferase 54 U/L (5-37); Blood Urea Nitrogen 13 mg/dL (9-16); Calcium 9.4 mg/dL (8.4-10.2); Carbon Dioxide 26 mmol/L (22-29); Chloride 107 mmol/L (96-108); Cholesterol 208 mg/dL (<200); Estimated Glomerular Filt Rate > 60; HDL Cholesterol 57 mg/dL (>40); Iron 133 mcg/dL (45-160); Magnesium 2.1 mg/dL (1.6-2.6); Percent Iron Saturation 40 % (15-50); Potassium 4.3 mmol/L (3.3-5.1); Sodium 143 mmol/L (135-145); Total Iron Binding Capacity 331 mcg/dL (228-428); Total Protein 7.2 g/dL (6.5-8.0); Triglycerides 77 mg/dL (<150); Unsaturated Iron Binding 198 ug/dL
[2025-04-28 11:00] LABS: Free T4 (Free Thyroxine) 0.96 ng/dL (0.71-1.85); Thyroid Stimulating Hormone 0.93 uIU/mL (0.32-4.0)
[2025-04-28 11:07] LABS: Folate 13.3 ng/mL (> or = 4.0); Vitamin B12 656 pg/mL (200-900)
== END 2025-04-28 08:29 | disposition home or self-care (01) ==
LOC: HO.LAB 08:28
PROVIDERS: PCP Hospitalist; Visit Provider Psychiatry & Neurology Psychiatry
DX: Z13.1 Encounter for screening for diabetes mellitus (principal); Z13.6 Encounter for screening for cardiovascular disorders; F41.1 Generalized anxiety disorder; F90.9 Attention-deficit hyperactivity disorder, unspecified type; F32.0 Major depressive disorder, single episode, mild
CPT/HCPCS: 36415; 80053; 80061; 82306; 82607; 82746; 83036; 83090; 83540; 83735; 84425; 84439; 84443; 85025; 85652; 93005

== ENCOUNTER → 2025-04-28 08:34 | Outpatient (BNV) | payer BC, SELFPAY | PROVIDERS: PCP Hospitalist; Visit Provider Internal Medicine Cardiovascular Disease | DX: Z13.6 Encounter for screening for cardiovascular disorders (principal) | CPT/HCPCS: 93010 ==

== ENCOUNTER → 2025-05-08 09:30 | Outpatient (BNV) | payer BC, SELFPAY | PROVIDERS: Visit Provider Psychiatry & Neurology Psychiatry | DX: F33.2 Major depressive disorder, recurrent severe without psychotic features (principal); F41.1 Generalized anxiety disorder; F90.9 Attention-deficit hyperactivity disorder, unspecified type; F34.9 Persistent mood [affective] disorder, unspecified | CPT/HCPCS: 99214 ==

== ENCOUNTER 2025-05-22 10:00 | Outpatient (RCR) | payer BC, SELFPAY ==
[2025-04-28 10:18] VITALS: BP 82/52; PULSE 68; TEMP 36.7
[2025-04-28 10:21] VITALS: BP 100/60
[2025-04-28 15:10] VITALS: BMI 28.3
--- NOTE | 2025-04-28 15:14 | PC.ADMIT ---
Patient is a 44 year old male who was referred by crisis secondary to mood swings, depression and anxiety sxs. Patient reports stresses including work stresses along with his parents and family stresses. He would like to learn coping skills to deal with stress,and anger. Patient taking a NAGA from work to work on his mental health. Patient is alert and oriented x4. He is calm and cooperative. He presented with anxious mood and affect. He denied SI, no HI. He was given a copy of his safety plan if needed. Medications updated with patient and patient's pharmacy. He stated he was taken off Nortriptyline by Dr. Oropeza in February 2025. Patient reports he vapes Marijuana daily. He was given written and verbal education on possible short and longterm risks of use along with educational information about Marijuana use disorder.
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
--- NOTE | 2025-04-30 15:24 | HO.PHP ---
Patients case was opened in weekly team treatment meeting
--- NOTE | 2025-05-08 12:02 | P.PNPSP_ITS ---
Subjective Subjective Date of Service: 05/08/25 Reason For Visit: depression,anxiety Interim History: Patient seen for follow-up.. No major changes in presentation. Mood last week was okay until any stressor intervenes. Sensitive to environmental demands. Experienced a lot of anxiety and feeling overwhelmed for minor stressors, interactions. Had to attend a last week. Tolerating Lamictal 150 mg, anticipate increase to 200 mg daily next week. Thus far is tolerating guanfacine, anxiety persists and will plan to titrate dose. Start Vyvanse to target ADHD symptoms, attentional regulation, executive dysfunction. Denies any h/h/SI. Sleep, energy variable, appetite intact. Medication Compliance: Yes Side effects from medications: No Attending Groups: Yes Review of Systems Acute medical concerns: No Diagnostics Vital Signs (24Hr): BMI result Body Mass Index 28.3 Assessment & Plan Assessment & Plan (1) MDD (major depressive disorder), recurrent severe, without psychosis: Status: Acute Code(s): F33.2 - Major depressive disorder, recurrent severe without psychotic features (2) CRISPIN (generalized anxiety disorder): Status: Acute Code(s): F41.1 - Generalized anxiety disorder (3) Attention-deficit hyperactivity disorder, unspecified type: Status: Acute Code(s): F90.9 - Attention-deficit hyperactivity disorder, unspecified type (4) Persistent mood [affective] disorder, unspecified: Status: Acute Code(s): F34.9 - Persistent mood [affective] disorder, unspecified Plan continue PHP start Vyvanse 10 mg qam continue guanfacine ER at 1-2 mg qam conitnue Lamictal 150 mg/d (plan to increase to 200 mg qd next week) continue other regular medications ] Routine lab work as indicated EKG, routine for baseline QTc for medication considerations as indicated UDS as indicated Continue to monitor Patient educated on: diagnosis and medication risk/benefits Informed Consent: understands Reason for contiued partial hosp. stay Substantial Risk for: inability to function and med/psych decompensation Certification I certify that partial hospital treatment is medically necessary due to the symptoms and problems resulting from the patient's mental illness and the failure to treat the patient at the partial hospital level of care would likely result in the patient requiring inpatient psychiatric care which could not be prevented at a less intensive level of care. Total time managing care of this patient today __30__ minutes. Discharge Plan Discharge Attending provider: Angelina Johnson Medications: New lamotrigine 100 mg tablet 200 mg PO DAILY Qty: 60 0RF nicotine [Nicoderm CQ] 21 mg/24 hr patch 24 hour 1 patch transdermal DAILY Qty: 14 0RF nicotine 21 mg/24 hr patch 24 hour 1 patch transdermal DAILY Qty: 14 0RF Rx Instructions: apply patch daily in AM and remove every night lisdexamfetamine 10 mg capsule 10 mg PO QAM Qty: 30 0RF Rx Instructions: Partial Fill upon patient request. For ADHD citalopram 10 mg tablet 30 mg PO DAILY Qty: 90 0RF Continued guanfacine 1 mg tablet extended release 24 hr 1 mg PO DAILY Qty: 30 0RF No Action citalopram 40 mg tablet 40 mg PO DAILY trazodone 100 mg tablet 100 mg PO BEDTIME hydroxyzine pamoate 25 mg capsule 25 mg PO TID PRN (Reason: Anxiety) Patient Comments: Patient stated he takes Hydroxyzine PRN for anxiety. Stand Alone Forms: Patient Portal Discharge page Print Language: Occitan
--- NOTE | 2025-05-14 13:48 | PC.NURSE ---
Patient reports he has black lines on a few of his toenails for the past month. I advised patient to f/u with his PCP. Patient stated he is going to call today.
--- NOTE | 2025-05-15 11:44 | HO.PHPPROGNO ---
Subjective Subjective Date of Service: 05/15/25 Reason For Visit: depression,anxiety Healthcare Proxy: No Guardianship: No Medical Problems Affecting Mental Status: No Interim History: 44 yo MWM presents for med fu- down to 20mg on citalopram - now on guanfacine and vyvanse and lamotrigine- first one took of nortrypitline and now on trazodone for sleep here taking down citalopram and added lamotrigine Pt wanted to check in about ED from lowering citalopram or starting other meds- (trazodone?) Not able to get full erection currently on meds Medication Compliance: Yes Side effects from medications: Yes (? not completely erect, toe nail lines(2 wks ago), slight elev lfts) Attending Groups: Yes Mental Status Exam Mental Status Exam Narrative: casually dressed and groomed man Patient Orientation: Person, Place, Time and Situation Level of Consciousness: Awake Patient Behavior: Appropriate and Cooperative Mood Description: Anxious Affect Description: Appropriate Patient Cognition Impaired: No Ability to Follow Directions: Good Speech Pattern: Clear Hallucinations: None Delusions: Not Present Thought Process: Intact and Goal Oriented Depressive Symptoms: Reduced Sex Drive (dec capacity for full erection since med changes he thinks) Judgement: Good Diagnostics Vital Signs (24Hr): BMI result Body Mass Index 28.3 Assessment & Plan Assessment & Plan (1) MDD (major depressive disorder), recurrent severe, without psychosis: Status: Acute Code(s): F33.2 - Major depressive disorder, recurrent severe without psychotic features (2) Persistent mood [affective] disorder, unspecified: Status: Acute Code(s): F34.9 - Persistent mood [affective] disorder, unspecified (3) Erectile dysfunction: Status: Acute Code(s): N52.9 - Male erectile dysfunction, unspecified Plan no change to meds, unclear why would be having ED problems now while tapering off citalopram =- suggested waiting it out and maybe provider could consider med for ed but doubt related to new meds? Patient educated on: medication risk/benefits Informed Consent: understands Reason for contiued partial hosp. stay Substantial Risk for: rapid decompensation Certification I certify that partial hospital treatment is medically necessary due to the symptoms and problems resulting from the patient's mental illness and the failure to treat the patient at the partial hospital level of care would likely result in the patient requiring inpatient psychiatric care which could not be prevented at a less intensive level of care. Total time managing care of this patient today ____ minutes. Discharge Plan Discharge Attending provider: Angelina Johnson Medications: New lamotrigine 100 mg tablet 200 mg PO DAILY Qty: 60 0RF nicotine [Nicoderm CQ] 21 mg/24 hr patch 24 hour 1 patch transdermal DAILY Qty: 14 0RF nicotine 21 mg/24 hr patch 24 hour 1 patch transdermal DAILY Qty: 14 0RF Rx Instructions: apply patch daily in AM and remove every night lisdexamfetamine 10 mg capsule 10 mg PO QAM Qty: 30 0RF Rx Instructions: Partial Fill upon patient request. For ADHD citalopram 10 mg tablet 30 mg PO DAILY Qty: 90 0RF Continued guanfacine 1 mg tablet extended release 24 hr 1 mg PO DAILY Qty: 30 0RF No Action citalopram 40 mg tablet 40 mg PO DAILY trazodone 100 mg tablet 100 mg PO BEDTIME hydroxyzine pamoate 25 mg capsule 25 mg PO TID PRN (Reason: Anxiety) Patient Comments: Patient stated he takes Hydroxyzine PRN for anxiety. Stand Alone Forms: Patient Portal Discharge page Print Language: Kiswahili
--- NOTE | 2025-05-22 21:50 | HO.PHPPROGNO ---
Subjective Subjective Date of Service: 05/22/25 Reason For Visit: depression,anxiety Interim History: Patient seen for follow-up, anticipating discharge at the end of program today.? Feels focus attention is significantly more regulated. Not getting hyperfocused/obsessive in his head or in details. He is able to start and complete tasks and move onto other tasks, I have never felt so much imprpvement with a medication before . He is tolerating Vyvanse and is doing well as 40 mg daily. He agrees with plan to take 1-2 days/week off from stimulant every week. He apparently tapered from citalopram rather quickly, but says he has been on and off of the medication many times over the past decades and says he knew he would be fine coming off. Reports no acute issues or concerns. Medication compliant, medications well-tolerated. Denies any adverse effects.? Mood is stable.? Denies any hopelessness or SI. Denies thoughts of harming self or others at this time. Denies any aggressive ideation or HI. Denies any paranoia or AH or VH. Sleep, appetite, energy stable. Medication Compliance: Yes Side effects from medications: No Attending Groups: Yes Review of Systems Acute medical concerns: No Mental Status Exam Mental Status Exam Narrative: Alert, oriented, in no acute distress. Calm, cooperative. Mood stable, affect appropriate. Speech normal. Thought process linear, coherent, more goal-directed. Thought content related to stressors, future-oriented, denies any helplessness, hopelessness or SI.? No aggressive ideation or HI. No paranoia or delusional content elicited. No evidence of psychosis. Insight and judgment fair-good. Diagnostics Vital Signs (24Hr): BMI result Body Mass Index 28.3 Assessment & Plan Assessment & Plan (1) MDD (major depressive disorder), recurrent severe, without psychosis: Status: Acute Code(s): F33.2 - Major depressive disorder, recurrent severe without psychotic features (2) CRISPIN (generalized anxiety disorder): Status: Acute Code(s): F41.1 - Generalized anxiety disorder (3) Attention-deficit hyperactivity disorder, unspecified type: Status: Acute Code(s): F90.9 - Attention-deficit hyperactivity disorder, unspecified type (4) Persistent mood [affective] disorder, unspecified: Status: Acute Code(s): F34.9 - Persistent mood [affective] disorder, unspecified Plan [facility]charge from [facility] continue Vyvanse 40 mg qam continue guanfacine ER at 1-2 mg qam continue Lamictal 200 mg qd continue hydroxyzine 25 mg tid prn continue trazodone 100 mg qhs tapered off citalopram continue other regular medications? Refills sent to pharmacy Will defer further medication management to outpatient provider *Safety plan reviewed *Discharge diagnoses, treatment course, discharge plan have been reviewed with patient (including medication regime, medication management, potential side effects) as well as treatment rationale were also revisited *Discharge paperwork signed and given to patient, copy sent for scanning to chart Patient educated on: diagnosis and medication risk/benefits Informed Consent: understands Reason for contiued partial hosp. stay Substantial Risk for: stable for discharge Certification I certify that partial hospital treatment is medically necessary due to the symptoms and problems resulting from the patient's mental illness and the failure to treat the patient at the partial hospital level of care would likely result in the patient requiring inpatient psychiatric care which could not be prevented at a less intensive level of care. Total time managing care of this patient today _30___ minutes. Discharge Plan Discharge Attending provider: Angelina Johnson Medications: New nicotine [Nicoderm CQ] 21 mg/24 hr patch 24 hour 1 patch transdermal DAILY Qty: 14 0RF nicotine 21 mg/24 hr patch 24 hour 1 patch transdermal DAILY Qty: 14 0RF Rx Instructions: apply patch daily in AM and remove every night citalopram 10 mg tablet 30 mg PO DAILY Qty: 90 0RF lisdexamfetamine 40 mg capsule 40 mg PO QAM Qty: 14 0RF Rx Instructions: Partial Fill upon patient request. Continued trazodone 100 mg tablet 100 mg PO BEDTIME hydroxyzine pamoate 25 mg capsule 25 mg PO TID PRN (Reason: Anxiety) Patient Comments: Patient stated he takes Hydroxyzine PRN for anxiety. guanfacine 1 mg tablet extended release 24 hr 1 mg PO DAILY Qty: 30 0RF lamotrigine 100 mg tablet 200 mg PO DAILY Qty: 60 0RF Discontinued citalopram 40 mg tablet 40 mg PO DAILY Stand Alone Forms: Patient Portal Discharge page Patient Education: ADHD in Adults (ED), ADHD in Adults (DC) Print Language: Citizen Of [place]
== END 2025-05-22 23:59 | disposition home or self-care (01) ==
LOC: HO.PHPA 10:00
PROVIDERS: Visit Provider Psychiatry & Neurology Psychiatry
DX: F33.2 Major depressive disorder, recurrent severe without psychotic features (principal); F41.1 Generalized anxiety disorder; F90.9 Attention-deficit hyperactivity disorder, unspecified type; F34.9 Persistent mood [affective] disorder, unspecified; Z79.899 Other long term (current) drug therapy
CPT/HCPCS: 90791; 90853